=== PATIENT | female | born 1990 | race Caucasian/White ===

== ENCOUNTER → 2016-08-16 | Outpatient (CLI) | payer OTHER ==
[~2016-08-16] MED LIST: BCPILLS PO; FLUT1INH PO
== END | disposition home or self-care (01) ==
LOC: C.PAPS 15:55
PROVIDERS: ATTEND Obstetrics & Gynecology
DX: Z12.4 Encounter for screening for malignant neoplasm of cervix (principal)

== ENCOUNTER 2017-03-12 09:31 | Emergency (ER) | payer OTHER, BC ==
[~2017-03-12] VITALS: Ht 160 cm; Wt 61.0 kg
[2017-03-12 09:32] VITALS: TEMP 36.8; Ht 160 cm; Wt 61.0 kg
[2017-03-12 09:45] VITALS: O2SAT 98
[2017-03-12 10:20] LABS: BASO % 0.8 %; BASO ABS # 0.06 K/uL (0-0.2); COMPLETE YES; EOS % 1.6 %; HEMATOCRIT 40.1 % (37-47); IG% 0.3 %; LYMPH % 20.9 %; LYMPH ABS # 1.55 K/uL (1.2-3.4); MEAN CELL VOLUME 83.5 fL (80-100); MEAN CORPUSCULAR HEMOGLOBIN 28.3 pg (25-34); MEAN CORPUSCULAR HGB CONC 33.9 g/dl (32-36); MEAN PLATELET VOLUME 9.5 fL (7.4-10.4); MONO % 4.4 %; PLATELET COUNT 259 K/uL (130-400); WHITE BLOOD COUNT 7.43 K/uL (4.8-10.8)
[2017-03-12] MEDS ORDERED: FLUT1INH PO (10:35)
[2017-03-12] MEDS ORDERED: BCPILLS PO (10:35)
[2017-03-12 10:40] LABS: BLOOD UREA NITROGEN 17 mg/dl (7-18); BUN/CREATININE RATIO 22.4 (10-20); CALCIUM 9.3 mg/dl (8.5-10.1); CARBON DIOXIDE 19 mmol/L (21-32); CHLORIDE 102 mmol/L (98-107); CREATININE 0.75 mg/dl (0.60-1.20); GLUCOSE 60 mg/dl (70-99); POTASSIUM 3.4 mmol/L (3.5-5.1); SODIUM 137 mmol/L (136-145)
[2017-03-12 10:58] LABS: THYROID STIMULATING HORMONE 0.591 uIu/ml (0.300-4.500)
--- NOTE | 2017-03-12 11:13 | EMERGENCY ROOM VISIT NOTE ---
History Report prepared by Mars: Lai Becerra Under the Supervision of: Dr. Manish Man M.D. First contact with patient: 09:49 Chief Complaint: TACHYCARDIA Stated Complaint: EXTREMELY FAST HEART RATE, SHAKY, POUNDING HEART Nursing Triage Summary: felt her hear racing yesterday when waking up and again today when waking up and then after a hr it gets better no complaints of pain no caffiene intake History of Present Illness The patient is a 26 year old female who presents to the Emergency Room with complaints of intermittent episodes of heart palpitations beginning yesterday. She has experienced her symptoms immediately after waking up yesterday and today. She notes that her symptoms did not wake her from sleep. The patient's symptoms lasted for about 1.5 hours each time they occurred. She also complains of nausea with her episodes, shakiness, and headaches. She notes that she changed her diet recently, and has been eating few carbohydrates. She denies any recent exposure to chemicals. The patient denies shortness of breath, abdominal pain, vomiting, or leg swelling. She has a history of asthma. The patient denies recent travel. She is on control. Source of History: patient Onset: Yesterday Quality: other (heart palpitations) Timing: intermittent Associated Symptoms: + headache, + nausea (with episodes), No SOB, No vomiting, No abdominal pain Note: Additional symptoms: shakiness. She denies leg swelling. Review of Systems See HPI for pertinent positives & negatives. A total of 10 systems reviewed and were otherwise negative. Past Medical & Surgical Medical Problems: (1) Amniotic fluid leaking (2) Gestation period, 39 weeks (3) No Known Active Medical Problems Family History No pertinent family history stated. Social History Smoking Status: Never Smoker Alcohol Use: none Drug Use: none Marital Status: single Occupation Status: student Current/Historical Medications Scheduled Control Pills ( Control Pills), 1 TAB PO DAILY Fluticasone Furoate-Vilanterol (Breo Ellipta), 1 PUFF PO DAILY Allergies Coded Allergies: Cat Dander (Unverified Allergy, Unknown, SOB/ITCHY EYES, 03/12/17) Meperidine (Verified Allergy, Unknown, HALLUCINATIONS, 03/12/17) [place] (Verified Allergy, Unknown, ITCHING/ THROAT SWELLING, 03/12/17) Physical Exam Vital Signs Date Time Temp Pulse Resp B/P (MAP) Pulse Ox O2 Delivery O2 Flow Rate FiO2 03/12/17 11:35 96 18 110/67 99 03/12/17 10:06 88 18 106/57 98 Room Air 03/12/17 09:48 98 03/12/17 09:45 98 Room Air 03/12/17 09:32 36.8 96 16 124/78 99 Physical Exam GENERAL: Patient is well appearing and in no acute distress. HEENT: No acute trauma, normocephalic atraumatic, mucous membranes moist, no nasal congestion, no scleral icterus. NECK: No stridor, no adenopathy, no meningismus, trachea is midline. LUNGS: No dyspnea. Clear to auscultation and equal bilaterally. No wheeze, no rhonchi. HEART: Regular rate and rhythm. No murmurs, rubs, gallops appreciated. ABDOMEN: Soft, nontender, bowel sounds positive, no masses appreciated, no peritonitis. BACK: No midline tenderness, no CVA tenderness EXTREMITIES: Normal motion all extremities, no cyanosis, no edema. NEUROLOGIC: Alert and oriented, no acute motor or sensory deficits, no focal weakness, cranial nerves grossly intact. SKIN: No rash, no jaundice, no diaphoresis. Medical Decision & Procedures Laboratory Results 03/12/17 10:10 Red Blood Count 4.80, Mean Corpuscular Volume 83.5, Mean Corpuscular Hemoglobin 28.3, Mean Corpuscular Hemoglobin Concent 33.9, Mean Platelet Volume 9.5, Neutrophils (%) (Auto) 72.0, Lymphocytes (%) (Auto) 20.9, Monocytes (%) (Auto) 4.4, Eosinophils (%) (Auto) 1.6, Basophils (%) (Auto) 0.8, Neutrophils # (Auto) 5.35, Lymphocytes # (Auto) 1.55, Monocytes # (Auto) 0.33, Eosinophils # (Auto) 0.12, Basophils # (Auto) 0.06 03/12/17 10:10 Test 03/12/17 10:10 White Blood Count 7.43 K/uL (4.8-10.8) Red Blood Count 4.80 M/uL (4.2-5.4) Hemoglobin 13.6 g/dL (12.0-16.0) Hematocrit 40.1 % (37-47) Mean Corpuscular Volume 83.5 fL (80-100) Mean Corpuscular Hemoglobin 28.3 pg (25-34) Mean Corpuscular Hemoglobin Concent 33.9 g/dl (32-36) Platelet Count 259 K/uL (130-400) Mean Platelet Volume 9.5 fL (7.4-10.4) Neutrophils (%) (Auto) 72.0 % Lymphocytes (%) (Auto) 20.9 % Monocytes (%) (Auto) 4.4 % Eosinophils (%) (Auto) 1.6 % Basophils (%) (Auto) 0.8 % Neutrophils # (Auto) 5.35 K/uL (1.4-6.5) Lymphocytes # (Auto) 1.55 K/uL (1.2-3.4) Monocytes # (Auto) 0.33 K/uL (0.11-0.59) Eosinophils # (Auto) 0.12 K/uL (0-0.5) Basophils # (Auto) 0.06 K/uL (0-0.2) RDW Standard Deviation 38.0 fL (36.4-46.3) RDW Coefficient of Variation 12.5 % (11.5-14.5) Immature Granulocyte % (Auto) 0.3 % Immature Granulocyte # (Auto) 0.02 K/uL (0.00-0.02) D-Dimer 500 ug/L FEU (0-500) Anion Gap 16.0 mmol/L (3-11) Est Creatinine Clear Calc Drug Dose 94.8 ml/min Estimated GFR () 128.4 Estimated GFR (Non- 110.8 BUN/Creatinine Ratio 22.4 (10-20) Calcium Level 9.3 mg/dl (8.5-10.1) Magnesium Level 2.0 mg/dl (1.8-2.4) Troponin I < 0.015 ng/ml (0-0.045) Thyroid Stimulating Hormone (TSH) 0.591 uIu/ml (0.300-4.500) Laboratory results as reviewed by me. ECG Indication: palpitations Rate (beats per minute): 86 Rhythm: normal sinus Findings: no acute ischemic change, no ectopy ED Course 0950: The patient was evaluated in room B7. A complete history and physical exam was performed. 1110: Reevaluated the patient. She is comfortable going home. Discussed results and discharge instructions: she verbalized understanding and agreement. We also discussed the dangers of ketotic diets and the need for follow up with her PCP. The patient is ready for discharge. Medical Decision Differential: NSR, SVT, PACs, PVCs, Cardiac Dysrhythmia, Endocrine Dysfunction, Electrolyte/Metabolic Abnormality, Pulmonary Embolism, Infectious, GI, amongst other pathologies entertained. 26 yr old female arrives with complaint of palpitations. Admits she has been on Ketogenic diet over last week and symptoms started last 2 mornings. EKG and labs unremarkable other than low BSG consistent with diet she is on. Discussed keeping well feed. She is stable, breathing comfortably and in no distress. No arrhythmia on monitor for 2 hours. Advised holter from PCP. Discussed symptoms requiring RTED. Medication Reconcilliation Current Medication List: was personally reviewed by me Blood Pressure Screening Patient's blood pressure: Normal blood pressure Blood pressure disposition: Did not require urgent referral Impression Primary Impression: Intermittent palpitations Additional Impression: Hypoglycemia Scribe Attestation The scribe's documentation has been prepared under my direction and personally reviewed by me in its entirety. I confirm that the note above accurately reflects all work, treatment, procedures, and medical decision making performed by me. Departure Information Dispostion Home / Self-Care Patient Instructions ED Palpitations, My [facility] Health Problem Qualifiers
[2017-03-12 11:35] VITALS: BP 110/67; PULSE 96; O2SAT 99
== END 2017-03-12 11:35 | disposition home or self-care (01) ==
LOC: C.EDB 09:32
DX: R00.2 Palpitations (principal); E16.2 Hypoglycemia, unspecified; J45.909 Unspecified asthma, uncomplicated; Z79.3 Long term (current) use of hormonal contraceptives